=== PATIENT | female | born 2000 | race Caucasian/White ===

== ENCOUNTER 2025-02-14 16:28 | Emergency (ER) | payer BC, SELFPAY ==
[2025-02-14 16:30] VITALS: BP 140/81
[2025-02-14 16:53] LABS: Hematocrit 42.0 % (37.0-47.0); Hemoglobin 14.9 g/dL (12.0-16.0); Mean Corp Hgb Conc. 35.5 g/dL (33.0-37.0); Mean Corpuscular Volume 87.7 fL (81.0-99.0); Nucleated Red Blood Cells % 0 %; Platelet Count 332 10^3/uL (130-400); Red Cell Dist. Width 12.0 % (11.5-14.5)
[2025-02-14 17:17] LABS: ALT (SGPT) 18 U/L (0-35); AST (SGOT) 26 U/L (14-36); Albumin 4.5 g/dl (3.5-5.0); Alkaline Phosphatase 89 U/L (38-126); Blood Urea Nitrogen 16 mg/dl (7-17); Calcium 9.8 mg/dl (8.4-10.2); Carbon Dioxide 24 mmol/L (22-30); Chloride 107 mmol/L (98-107); Glucose 113 mg/dl (70-99); Potassium 4.3 mmol/L (3.5-5.1); Sodium 138 mmol/L (135-145); Total Protein 7.6 g/dl (6.3-8.2); eGFR > 60.00
--- NOTE | 2025-02-14 18:06 | ED.GENMED ---
History of Present Illness
General
Chief Complaint: Numbness
Time Seen by Provider: 02/14/25 18:05
History of Present Illness
History of Present Illness:
FOCUSED PAST MEDICAL HISTORY
- The patient has a history of OCD, PTSD, anxiety/depression, ADHD
REVIEW OF OLD RECORDS
- The patient was seen here with chest pain in 2019
Note:
CHIEF COMPLAINT(S)
Dizziness and elevated heart rate.
HISTORY OF PRESENT ILLNESS
The patient is a 24-year-old female with a history of starting Adderall a few weeks ago. She presents with dizziness and an elevated heart rate, as noted by her personal device. The symptoms began acutely today. She reports feeling anxious and
suggests that her symptoms might be anxiety-related. She also experienced difficulty breathing and slight chest discomfort earlier, which is currently improving. She mentioned that her heart rate reached 200 beats per minute during a run yesterday.
The patient does not feel dehydrated and has not taken any fast-acting anxiety medication recently.
SOCIAL DETERMINANTS AFFECTING HEALTH
The patient mentioned living with her mother and did not express significant concerns about anxiety related to her living situation.
PHYSICAL EXAM
- General: Well appearing in no distress
- HEENT: Moist oral mucosa
- Cardiovascular: No murmurs, tachycardic heart rate, regular rhythm, No chest wall tenderness
- Pulmonary: No respiratory distress, breath sounds are clear and equal
- Abdomen: Soft with no peritoneal signs, no tenderness
- Neurologic: Excellent strength all extremities, no coordination deficits
- Psychiatric: Appropriate mental status, normal insight and judgement, the patient does appear somewhat anxious
- Extremities: Nontender, no edema, moves all extremities equally
- Skin: No rash, no lesions
ELECTROCARDIOGRAM (EKG)
My independent EKG interpretation is the EKG shows no major abnormalities, with the heart rate already decreasing to 99 beats per minute from an elevated state.
PLAN
Administer a small oral dose of Ativan (lorazepam), 0.5 mg, to help alleviate anxiety symptoms and discuss the possibility of reducing the Adderall dosage if symptoms persist. Re-evaluate the patient after administering Ativan and performing another
EKG.
DIFFERENTIAL DIAGNOSIS
The Differential Diagnosis includes, in no particular order and is not limited to:
- Anxiety Attack
- Tachycardia due to Stimulant Use (Adderall)
- Dehydration
- Hyperthyroidism
- Anemia
- Cardiac Arrhythmia
- Pheochromocytoma
- Panic Disorder
- Cardiac Stress
- Exercise-induced Tachycardia
SUMMARY OF ENCOUNTER
The patient was seen in the emergency department due to dizziness and high heart rate. Initial assessments, including EKG and blood work, showed no alarming findings. The patient was administered oral Ativan to manage suspected anxiety. The plan is
to consider reducing the Adderall dosage if similar symptoms recur.
DISPOSITION
Discharge with advice to consider adjusting Adderall dosage and follow-up with primary care.
EMERGENCY TREATMENTS ADMINISTERED
Administered 0.5 mg oral Ativan.
MEDICATION RECONCILIATION
- Ativan (lorazepam) 0.5 mg orally administered.
MEDICAL DECISION MAKING
- Complexity of Data Reviewed: Chronic conditions affecting care involving recent Adderall start.
- Data:
Category 1:
- Labs reviewed and showed nothing alarming.
- Previously conducted EKG reviewed, no major abnormalities found.
Category 3:
- Discussed the effect of Adderall and patients symptoms with the patient.
- Risk:
- Consideration of Admission/Observation: Escalation of care including admission/observation was considered given the complexity and risk of the patients presenting complaint, exam findings, and/or their underlying comorbidities. However, ultimately
I feel the patient is safe for outpatient management with close follow-up. Reasoning: Work-up reassuring, does not reveal any acute life/organ threatening processes, patients symptoms well controlled upon reevaluation, reexamination is reassuring,
vitals are stable, patient agreeable with discharge, reliable for follow-up.
DIAGNOSIS
- Panic Disorder (F41.0)
- Tachycardia Unspecified (R00.0)
- Medication-Induced Tachycardia (T43.605A)
EKG
- Sinus 123, normal axis, nonspecific ST wave abnormality
LABS
- Chemistries as well as TSH are normal, CBC unremarkable
UPDATE
- Even before any Ativan given, her heart rate was down to 90. Repeat EKG was obtained which shows a sinus rhythm with rate of [address] abnormality
SUMMARY OF ENCOUNTER
The patient, a 24-year-old female, was seen in the emergency department for symptoms of dizziness and an elevated heart rate. She has been taking Adderall recently, attributed to her heightened anxiety and tachycardia episode while running. She
reported episodes of chest pain, which resolved, and anxiety. Upon evaluation, an EKG was performed initially showing an elevated heart rate, but repeats showed a decrease to around 90 beats per minute, with no significant abnormalities noted. The
patients symptoms were thought to be exacerbated by Adderall and anxiety related to upcoming finance exams. A single dose of lorazepam was administered to manage anxiety symptoms. It was discussed that she should consider adjusting her Adderall
dosage if symptoms persist.
DISPOSITION
Discharge.
ASSESSMENT
The patient is an otherwise healthy 24-year-old with no significant cardiac risk factors, making a cardiac event unlikely. The symptoms appear related to anxiety and the recent initiation of Adderall.
EMERGENCY TREATMENTS ADMINISTERED
0.5 mg oral lorazepam (Ativan) was administered to alleviate anxiety symptoms.
PLAN
Consider reducing or discontinuing Adderall if symptoms of anxiety and tachycardia persist. Patient is to follow up with her primary care physician or psychiatrist for further management of her anxiety.
INDEPENDENT REVIEW OF LABS AND INTERPRETATION OF TESTS
My independent review of the thyroid function test indicates normal thyroid levels.
My independent EKG interpretation is the EKG shows no major abnormalities, with normalization after heart rate reduction.
PATIENT EDUCATION AND COUNSELING
Discussed the implications of anxiety and stimulant use on heart rate and overall health. Reassured the patient about low risk of cardiac events given her age and lack of risk factors. Advised on monitoring symptoms and considering adjustment of
Adderall.
FOLLOW-UP INSTRUCTIONS
Please follow up with the primary care physician or psychiatrist to discuss the ongoing management of anxiety and Adderall dosage.
MEDICATION RECONCILIATION
- Lorazepam (Ativan) 0.5 mg orally administered.
MEDICAL DECISION MAKING
- Complexity of Data Reviewed: Chronic conditions affecting care [history of ADHD, anxiety]. Differential diagnosis includes Anxiety Attack, Tachycardia due to Stimulant Use (Adderall), Hyperthyroidism, Cardiac Arrhythmia, Panic Disorder, and
Cardiac Stress.
- Data: Category 1
- My independent interpretation of EKG shows no major abnormalities.
- My independent review of thyroid function was normal.
- Risk:
Prescription medication management was considered; however, after evaluation, it was determined outpatient management with close follow-up is safe.
Consideration of Admission/Observation: Escalation of care including admission/observation was considered given the complexity and risk of the patients presenting complaint, exam findings, and/or their underlying comorbidities. However, ultimately,
I feel the patient is safe for outpatient management with close follow-up. Reasoning: Work-up reassuring, does not reveal any acute life/organ-threatening processes, patients symptoms well-controlled upon reevaluation, reexamination is reassuring,
vitals are stable, patient agreeable with discharge, reliable for follow-up.
DIAGNOSIS
Panic Disorder (F41.0)
Tachycardia Unspecified (R00.0)
Medication-Induced Tachycardia (T43.605A)
Phy Exam
Physical Exam
Physical Exam:
See HPI
Course
Orders/Labs/Results
Orders:
Orders
02/14/25 16:34
EKG [Electrocardiogram (*1)] Urgent
Reason for Study: Tachycardia
EKG- Treatment ONCE
02/14/25 16:45
Complete Blood Count/With Diff Urgent
Comprehensive Metabolic Panel Urgent
TSH Reflex To Free T4 Urgent
02/14/25 18:25
Electrocardiogram (*1) Urgent
Reason for Study: Chest Pain
EKG- Treatment ONCE
Lorazepam [Ativan] 0.5 mg PO NOW STA
Abnormal Lab Results
02/14/25
16:45
MCH 31.1 H pg
(27.0-31.0)
Absolute Monos (auto) 0.8 H 10^3/uL
(0.1-0.6)
Glucose 113 H mg/dl
(70-99)
02/14/25 16:45
02/14/25 16:45
Vital Signs
Initial and Last Documented VS:
Initial Vital Signs
Temp Pulse Resp BP Pulse Ox
36.9 C 121 18 140/81 99
02/14/25 16:30 02/14/25 16:30 02/14/25 16:30 02/14/25 16:30 02/14/25 16:30
Last Documented Vital Signs
Temp Pulse Resp BP Pulse Ox
36.9 C 91 23 135/78 97
02/14/25 16:30 02/14/25 18:30 02/14/25 18:30 02/14/25 18:29 02/14/25 18:30
*Pulse Oximetry
SaO2: 99
Oxygen Mode of Delivery: Room air
Patient hypoxic: no
*Critical Care Note
Total Time (30-74mins, 75-104mins- exclusive of procedures): Not Applicable
ED Attending Note
-
Portions of this chart may have been created with voice recognition software.� Occasional wrong word or��sound alike� substitutions may have occurred due to the inherent limitations of voice recognition software.
Discharge Plan
Departure
Prescriptions:
No Action
fluoxetine [Prozac] 40 MG capsule
40 mg PO DAILY
norgestimate-ethinyl estradiol [Sprintec (28)] 1 TAB tablet
1 tab PO DAILY
atomoxetine [Strattera] 25 MG capsule
25 mg PO DAILY
Referrals:
Miriam Win CRNP [Family Provider, Family Practice]
Interventions
Interventions:
*Risk Screen - Suicide Last Done: 02/14/25 16:30
*General Assessment Last Done: 02/14/25 16:30
*ED- Fall Risk Assessment Last Done: 02/14/25 16:30
*ED COVID-19 Vaccine History Last Done: 02/14/25 16:30
ED- Neurological Assessment Last Done: 02/14/25 18:30
Discharge Date and Time
Print Language: BHUTANESE
[2025-02-14] MEDS: ATIVAN 0.5 MG PO (18:28)
[2025-02-14 18:29] VITALS: BP 135/78
[2025-02-14 18:30] VITALS: BMI 30.6
[2025-02-14 19:00] VITALS: BP 116/77
== END 2025-02-14 19:40 | disposition home or self-care (01) ==
LOC: EMR 16:28
PROVIDERS: Emergency Medicine; EMERGENCY PHYSICIAN Emergency Medicine; FAMILY PHYSICIAN Nurse Practitioner
DX: F41.8 Other specified anxiety disorders (principal); R20.0 Anesthesia of skin; F42.9 Obsessive-compulsive disorder, unspecified; F43.10 Post-traumatic stress disorder, unspecified; F90.9 Attention-deficit hyperactivity disorder, unspecified type
CPT/HCPCS: 99283; 80053; 84443; 85025; 93005